=== PATIENT | female | born 1990 | race Caucasian/White ===

== ENCOUNTER 2025-01-08 17:33 | Emergency (ER) | payer OTHER, SELFPAY ==
--- OUTSIDE RECORDS SUMMARY | 2025-01-08 17:39 | XMS_ITS | Clinical Summary ---
Author Organization [facility] Address [address] [place] [address] Care Team Providers Care Paperback Machine Operator Name Role Phone Unavailable Primary Care Provider Unavailabl e Source Comments [facility],non-owned Affiliates and Associated Physician Practices is amultiple site organization consisting of ambulatory clinics and hospital sitesin [place], [place], [place] and [place]. This disclosure is being madepursuant to the Care Everywhere program and may not contain all information available regarding this patient. Last updated 18.[facility] [employer] Allergies No known active allergies Medications * Be aware that medications may not be up to date on this document. Alwaysverify current medications with the patient. labetalol (Normodyne; Trandate) 200 MG tablet Take 2 (two) tablets by mouth every 12 hours Active Vit-DSS-Fe Fum-FA ( vitamin with iron) tablet Take 1 (one) tablet by mouth once daily Active Active Problems Problem Noted Date Diagnosed Date Chronic hypertension affecting 023 Resolved Problems Problem Noted Date Diagnosed Date Resolved Date AMA (advanced maternal age) multigravida 35+, second trimester 10/29/2022 10/29/2022 Family History Relation Name Status Comments Brother Alive Father Alive Mother Alive Sister Alive Social History Tobacco Use Types Packs/Day Years Used Date Smoking Tobacco: Never Smokeless Tobacco: Never Tobacco Cessation:Counseling Given: Not Answered Alcohol Use Standard Drinks/Week Comments Not Currently 0 (1 standard drink = 0.6 oz pur e alcohol) [place] Depression Scale Answer Date Recorded [place] Depression Scale Total 0 10/29/2022 The thought of harming myself has occurred to me . Never 10/29/2022 Comments No Sex and Gender Information Value Date Recorded Sex Assigned at Not on file Legal Sex Female 5:34 AM DIRECTOR DIETETICS DEPARTMENT Gender Identity Not on file Sexual Orientation Not on file Last Filed Vital Signs Vital Sign Reading Time Taken Comments Blood Pressure 109/72 10/29/2022 9:29 AM DIRECTOR DIETETICS DEPARTMENT Pulse 90 10/29/2022 9:29 AM DIRECTOR DIETETICS DEPARTMENT Temperature - - Respiratory Rate - - Oxygen Saturation - - Inhaled Oxygen Concentration - - Weight 133.6 kg (294 lb 9.6 oz) 10/29/2022 9:29 AM DIRECTOR DIETETICS DEPARTMENT Height 157.5 cm (5' 2 ) 10/29/2022 9:29 AM DIRECTOR DIETETICS DEPARTMENT Body Mass Index 53.88 10/29/2022 9:29 AM DIRECTOR DIETETICS DEPARTMENT Plan of Treatment Health Maintenance Due Date Last Done Comments PAP SMEAR 1988 HIV SCREENING 01/03/2003 HEPATITIS C SCREENING 12/30/2005 DTAP/TDAP/TD VACCINES (1 - Tdap) 01/03/2007 HEPATITIS B VACCINE (1 of 3 - 19+ 3-dose series) 01/03/2007 COVID-19 VACCINE (1 - 2023-2 5 season) 2024 DEPRESSION SCREENING 09/14/2024 INFLUENZA VACCINE (Season Ended) 2025 ZOSTER VACCINE (1 of 2) 01/03/2038 HIB VACCINE Aged Out No longer eligi ble based on patient's age to complete this topic HPV VACCINE Aged Out No longer eligi ble based on patient's age to complete this topic MENINGOCOCCAL (Group B) VACC INE SHARED DECISION-MAKING Aged Out No longer eligibl e based on patient's age to complete this topic MENINGOCOCCAL GROUPS A/C/Y/W VACCINE Aged Out No longer eligible b ased on patient's age to complete this topic PNEUMOCOCCAL VACCINE Aged Out No long er eligible based on patient's age to complete this topic Insurance [facility]
--- OUTSIDE RECORDS SUMMARY | 2025-01-08 17:39 | XMS_ITS | Referral Summary ---
Author Organization [facility] Address [address] [place] [address] Care Team Providers Care Stuffed Casing Tier Name Role Phone No, Physician Primary Care Provider [phone] Allergies No known active allergies Medications PNV 39-iron stw-azpjd-hvk-d finch 30 mg iron-1.2 mg-55 mg-265 mg capsule Take by mouth daily Active benzocaine-ment hoL (DERMOPLAST) 20-0.5 % aerosolIndicati ons:Minor Skin Wound Pain Apply 1 Application (1 spray total) topically as needed for other (perianal area for pain) 1 g 3 Active ibuprofen (ADVIL,MOTRIN) 600 mg tabletIndicatio ns:Cramps Take 1 tablet (600 mg total) by mouth every 6 (six) hours as needed for pain 30 tablet 1 3 Active buPROPion XL (WELLBUTRIN XL) 150 mg 24 hr tablet Take 1 tablet (150 mg total) by mouth daily 30 tablet 3 Active busPIRone (BUSPAR) 5 mg tabletIndicatio ns:Generalized Anxiety Disorder Take 1 tablet (5 mg total) by mouth daily 30 tablet 3 Active labetaloL (NORMODYNE,GODFREY DATE) 200 mg tablet Take 2 tablets (400 mg total) by mouth 2 (two) times a day 120 tablet 3 Active Active Problems Problem Noted Date Diagnosed Date Chronic hypertension in 01/27/2023 Exudative pharyngitis 07/11/2019 Tonsillitis 07/11/2019 Immunizations Immunization Administration Dates Next Due MMR 01/29/2023(Deferred: No longer n eeded) Social History Tobacco Use Types Packs/Day Years Used Date Smoking Tobacco: Never Smokeless Tobacco: Never Alcohol Use Standard Drinks/Week Comments Not Currently 0 (1 standard drink = 0.6 oz pur e alcohol) Social Connection and Isolat ion Panel [NHANES] Answer Date Recorded In a typical week, how many times do you talk on the phone with family, friends, or neighbors? More than three times a week 01/27/2023 How often do you get togethe r with friends or relatives? More than three times a week 01/27/2023 How often do you attend chur ch or adventism services? Patient declined 01/27/2023 Do you belong to any clubs o r organizations such as gnosticist groups, unions, fraternal or athletic groups, or school groups? Patient declined 01/27/2023 How often do you attend meet ings of the clubs or organizations you belong to? Patient declined 01/27/2023 Are you , , di vorced, , never , or living with a partner? Never 01/27/2023 AUDIT-C Answer Date Recorded Q1: How often do you have a drink containing alc ohol? Never 01/27/2023 Average Number of Drinks Not on file 023 Frequency of Binge Drinking Not on file 01/12 Overall Financial Resource Strain (CARDIA) Answe r Date Recorded How hard is it for you to pa y for the very basics like food, housing, medical care, and heating? Not hard at all 01/27/2023 PHQ-2 Answer Date Recorded PHQ-2 Total Score (If total score is 3 or more points, staff should administer the PHQ-9) 3 01/27/2023 [facility] - Occupational Stress Questionnaire Answer Date Recorded Do you feel stress - tense, restless, nervous, or anxious, or unable to sleep at night because your mind is troubled all the time - these days? Not at all 01/27/2023 Exercise Vital Sign Answer Date Recorde d On average, how many days pe r week do you engage in moderate to strenuous exercise (like a brisk walk)? 0 days 01/27/2023 On average, how many minutes do you engage in exercise at this level? 0 min 01/27/2023 Hunger Vital Sign Answer Date Recorded Within the past 12 months, y ou worried that your food would run out before you got the money to buy more. Never true 01/28/20 23 Within the past 12 months, t he food you bought just didn't last and you didn't have money to get more. Never true 01/27/2023 PRAPARE - Transportation Answer Date Re corded In the past 12 months, has l ack of transportation kept you from medical appointments or from getting medications? No 01/12 In the past 12 months, has l ack of transportation kept you from meetings, work, or from getting things needed for daily living? No 01/27/2023 Housing Stability Vital Sign Answer Sabino e Recorded In the last 12 months, was t here a time when you were not able to pay the mortgage or rent on time? No 01/27/2023 In the last 12 months, how many places have you lived? 0 01/27/2023 In the last 12 months, was t here a time when you did not have a steady place to sleep or slept in a residential (including now)? No 01/27/2023 Personal Safety Answer Date Recorded Getting School Help Needed Not on file 01/28 Comments No Sex and Gender Information Value Date Recorded Sex Assigned at Not on file Legal Sex Female 5:44 PM EDGE MOLDER Gender Identity Not on file Sexual Orientation Not on file Last Filed Vital Signs Vital Sign Reading Time Taken Comments Blood Pressure 130/78 01/28/2023 10:10 PM CDT Pulse 83 01/28/2023 10:10 PM CDT Temperature 36.2 C (97.1 F) 01/28/2023 10:10 PM CDT Respiratory Rate 16 01/28/2023 10:10 PM CDT Oxygen Saturation 98% 05/16/2020 2:16 PM CDT Inhaled Oxygen Concentration - - Weight 133.8 kg (295 lb) 01/27/2023 7:02 AM CDT Height 157.5 cm (5' 2 ) 01/27/2023 7:02 AM CDT Body Mass Index 53.96 01/27/2023 7:02 AM CDT Plan of Treatment Not on file Insurance [facility] Advance Directives For more information, please contact: [phone] * Full Code (Latest Code Status on File) Date Activated Date Inactivated Comments 01/27/2023 4:49 PM 01/29/2023 7:51 PM * Full Code Date Activated Date Inactivated Comments 01/27/2023 6:36 AM 01/27/2023 4:49 PM Full CPR in case of cardiopulmonary arrest * Full Code Date Activated Date Inactivated Comments 12/13/2019 8:00 PM 12/15/2019 7:23 PM * Full Code Date Activated Date Inactivated Comments 12/13/2019 6:25 AM 12/13/2019 8:00 PM Full CPR in case of cardiopulmonary arrest Care Teams Stuffed Casing Tier Relationship Specialty Start Date End Date No, Physician PCP - General 05/20/19
--- OUTSIDE RECORDS SUMMARY | 2025-01-08 17:39 | XMS_ITS | Clinical Summary ---
Author Organization [facility] Address [address] [place] [address] Care Team Providers Care Store Mgr Name Role Phone No, Physician Primary Care Provider [phone] Allergies No known active allergies Medications PNV 39-iron fih-govvm-cps-d finch 30 mg iron-1.2 mg-55 mg-265 mg [...] Due MMR 01/29/2023(Deferred: No longer n eeded) Medical History Medical History Date Comments depression Family History Medical History Relation Name Comments Heart disease Mother Relation Name Status Comments Mother Social History Tobacco Use Types Packs/Day Years [...] often do you attend chur ch or jainism services? Patient declined 01/27/2023 Do you belong to any clubs o r organizations such as jehovah's witness groups, unions, fraternal or athletic groups, or [...] staff should administer the PHQ-9) 3 01/27/2023 [facility] - Occupational Stress Questionnaire Answer Date [...] place to sleep or slept in a long term (including now)? No 01/27/2023 Personal Safety Answer Date Recorded Getting School Help Needed Not on file 01/28 Comments No Sex and Gender Information Value Date Recorded Sex Assigned at Not on file Legal Sex Female 5:44 PM SITE DIRECTOR Gender Identity Not on file Sexual Orientation Not on file Obstetrics History Para Term AB IAB SAB Ectopic Multiple Livin g Live Births 5 5 5 0 2 2 Date Outcome GA Total Labor Labor/2nd/3rd Weight Sex Type Anes PTL Clara A1 A5 Name Clin Term Vag-Sp ont Term Vag-Sp ont Term Vag-Sp ont 2019 Term 39w 1d 3h 23m 3h 12m/0h 05m/0h 06m 3.37 kg (7 lb 6.9 oz) F Vag-Sp ont None N Livin g 9 9 LEWEY ,GIRL KELLY Pawel Carroll MD Delivery Location:[facility]) 2022 Term 38w 6d 0h 06m 0h 06m 2.799 kg (6 lb 2.7 oz) F Vagina l None N Livin g 8 9 RACHEL ,GIRL KELLY CONTRERAS Pawel Conrad MD Complications:None Delivery Location:[facility] ([facility]) Last Filed Vital Signs Vital Sign Reading [...] 01/27/2023 7:02 AM CDT Plan of Treatment Health Maintenance Due Date Last Done Comments Cervical Cancer Screening 1988 Hepatitis C Screening 1988 DTaP/Tdap/Td Vaccine (5 - Tdap) 04/24/1999 04/23/1999, 07/24/1992, 07/11/1991, Additional history exists Varicella Vaccines (1 of 2 - 13+ 2-dose series) 01/03/2001 Regular Well Visit/Exam 18-64 01/03/2006 Depression Screening 01/28/2024 01/27/2023, 01/28/20 23 Influenza Vaccine (#1) 2024 Hepatitis B Screening Completed 01/31/1998 , 09/13/1997, 08/09/1997 HPV Vaccines Aged Out No longer eligi ble based on patient's age to complete this topic Pneumococcal vaccine <65 Aged Out No longer eligible based on patient's age to complete this topic Insurance [facility] Advance Directives For more information, please contact: [phone] * Full Code (Latest Code Status on [...] in case of cardiopulmonary arrest Care Teams Store Mgr Relationship Specialty Start Date End Date No, Physician PCP - General 05/20/19
--- OUTSIDE RECORDS SUMMARY | 2025-01-08 17:40 | XMS_ITS | Clinical Summary ---
Author Organization [facility] Address [address] [place] [address] Phone Care Team Providers Care Asic Verification Engineer Name Role Phone Provider, None Primary Care Provider Unavailabl e Social History Tobacco Use Types Packs/Day Years Used Date Smoking Tobacco: Never Assessed Comments Unknown Sex and Gender Information Value Date Recorded Sex Assigned at Not on file Legal Sex Female 10:22 PM CDT Gender Identity Not on file Sexual Orientation Not on file Plan of Treatment Health Maintenance Due Date Last Done Comments Hepatitis C Virus (HCV) Screening 1988 Pap Smear 01/03/2009 Cervical Cancer Screening (CCS) 01/03/2018 HPV/Cotest 01/03/2018 Influenza Immunization (#1) 2024 SARS-COV-2 Immunization ( season) 2024 Respiratory Syncytial Virus (RSV) Immunization (Adult) (1 - 1-dose 75+ series) 01/03/2063 Hepatitis B Immunization Completed 998, 09/13/1997, 08/09/1997 DTaP/Tdap/Td Immunization Discontinued 2019, 04/23/1999, 07/24/1992, Additional history exists TdaP Immunization Completed 11/14/2019 Meningococcal Immunization (ACWY) Aged Out No longer eligible based on patient's age to complete this topic Pneumococcal Immunization Combined Aged Out No longer eligible based on patient's age to complete this topic Rotavirus Immunization Aged Out No lo nger eligible based on patient's age to complete this topic Insurance MEDICAID [place] Care Teams Asic Verification Engineer Relationship Specialty Start Date End Date Provider, None [place] PCP - General 10/11/19
[2025-01-08 17:41] VITALS: BP 213/121; PULSE 116; RESP 16; TEMP 36.6; O2SAT 99
--- NOTE | 2025-01-08 18:19 | ED.GENADULT ---
HPI - General Adult General Chief complaint: Upper Respiratory Infection Stated complaint: Ear Pain/Sore Throat Source: patient Mode of arrival: ambulatory Limitations: no limitations History of Present Illness HPI narrative: Pt presents for evaluation of sore throat and bilateral ear pain. Symptom onset yesterday. She denies any fever, chills, nausea, vomiting, diarrhea, cough or SOB. No recent sick contacts to her knowledge. She does not smoke. She is not taking any medication to assist with her symptoms. She arrives with markedly elevated BP. She denies any SOB, as previously mentioned, or chest pain. She does not smoke. She indicates she has a history of hypertension during . She has not been on medication in quite some time. Related Data Home Medications ?Medication ?Instructions ?Recorded ?Confirmed ?Last Taken ?Type bupropion HCl 150 mg 24 hr tablet, mg PO 01/08/25 Unknown History extended release norethindrone 1 mg-ethinyl tablet 01/08/25 Unknown History estradiol 20 mcg (24)-iron 75 mg (4) tablet (Aurovela 24 Fe) trazodone 100 mg tablet mg 01/08/25 Unknown History Allergies Allergy/AdvReac Type Severity Reaction Status Date / Time No Known Allergies Allergy Verified 01/08/25 17:45 Review of Systems Review of Systems: CONSTITUTIONAL: Denies fever, chills, or sweats. EYES: Denies visual changes, redness, or discharge. ENT: Reports sore throat and bilateral ear pain. CARDIOVASCULAR: Denies chest pain, palpitations, or edema. RESPIRATORY: Denies cough or dyspnea. GASTROINTESTINAL: Denies abdominal pain, nausea, vomiting, or diarrhea. GENITOURINARY: Denies dysuria or hematuria. SKIN: Denies rash or itching. MUSCULOSKELETAL: Denies back pain, joint pain, or myalgia. NEUROLOGIC: Denies headache, numbness, dizziness, or weakness. PSYCHIATRIC: Denies anxiety or depression. [facility] Past Medical History Medical History (Updated 01/08/25 @ 18:36 by Mateusz Barreto, YANELY, MARAL) Hypertension during Surgical History Surgical History No pertinent past surgical history Family History Family History Mother Family history non-contributory Social History Social History Smoking status: Never smoker Alcohol intake: never Substance use: never Living arrangements: with family Gender identity (if verbalized by the patient): Female Spiritual care concerns: No Exam Narrative: GENERAL: Well-appearing, well-nourished, and in no acute distress. HEAD: Normocephalic, atraumatic. EYES: PERRLA and EOMI. ENT: Nares clear, no rhinorrhea or epistaxis. Mucous membranes moist. Bilateral tonsillar enlargement with erythema but no exudate. Uvula is midline. Bilateral TMs pearly mandujano nonbulging NECK: Supple. No adenopathy or masses. No carotid bruits or JVD CHEST: Clear to auscultation. No respiratory distress. No wheezes rales or rhonchi HEART: Regular rate and rhythm. No murmur heard. Normal peripheral pulses. ABDOMEN: Soft, nontender, nondistended, normal active bowel sounds. EXTREMITIES: Normal range of motion. No edema. SKIN: Warm, dry, no rash. NEURO: No focal deficits. Alert and oriented x3. PSYCH: Normal mood and affect. Course Course Emergency Course: This is a 35-year-old female who presented for evaluation of sore throat and bilateral ear pain. Strep positive. Will treat with amoxicillin. Her blood pressure is markedly elevated. I recommended she go to the hospital for further evaluation. She declined. She has a single mother of 5 children. She states that she will contact whoever prescribed her blood pressure medication in the past tomorrow. I will provide her with a script for [facility]. I recommended she reconsider. She was provided with follow up information for primary care. She elected to leave [place] and understands potential implications of uncontrolled BP. Level of Care: Express Care Visit Vital Signs Vital signs: Vital Signs Temperature 36.6 C 01/08/25 17:41 Pulse Rate 116 H 01/08/25 17:41 Respiratory Rate 16 01/08/25 17:41 Blood Pressure 213/121 H 01/08/25 17:41 Pulse Oximetry 99 01/08/25 17:41 Oxygen Delivery Room Air 01/08/25 17:41 Temperature 36.6 C 01/08/25 17:41 Pulse Rate 116 H 01/08/25 17:41 Respiratory Rate 16 01/08/25 17:41 Blood Pressure 213/121 H 01/08/25 17:41 Pulse Oximetry 99 01/08/25 17:41 Oxygen Delivery Room Air 01/08/25 17:41 Medical Decision Making Vital Signs Vital Signs: Vital Signs Temperature 36.6 C 01/08/25 17:41 Pulse Rate 116 H 01/08/25 17:41 Respiratory Rate 16 01/08/25 17:41 Blood Pressure 213/121 H 01/08/25 17:41 Pulse Oximetry 99 01/08/25 17:41 Oxygen Delivery Room Air 01/08/25 17:41 Temperature 36.6 C 01/08/25 17:41 Pulse Rate 116 H 01/08/25 17:41 Respiratory Rate 16 01/08/25 17:41 Blood Pressure 213/121 H 01/08/25 17:41 Pulse Oximetry 99 01/08/25 17:41 Oxygen Delivery Room Air 01/08/25 17:41 Lab Data Labs: Lab Results 01/08/25 Range/Units 18:28 POC Grp A Strep Screen Positive (Negative) Discharge Plan Discharge Clinical Impression: Accelerated hypertension, Strep throat Patient Disposition: Left Against Medical Advice Condition: Guarded Prognosis Instructions: Strep Throat (DC), Hypertension (ED) Patient Language: French Prescriptions: New amoxicillin 500 mg tablet 500 mg PO Q12H Qty: 20 0RF amlodipine 5 mg tablet 5 mg PO DAILY Qty: 30 0RF No Action trazodone 100 mg tablet bupropion HCl 150 mg tablet extended release 24 hr PO Aurovela 24 Fe 1 mg-20 mcg (24)/75 mg (4) tablet Follow-up/Referrals: Fabian Villegas MD [Physician] - Time of Disposition: 18:38
[2025-01-08 18:30] LABS: EDSTREPNEGPOS1 Positive (Negative)
== END 2025-01-08 18:43 | disposition left against medical advice (07) ==
PROVIDERS: Emergency Provider Nurse Practitioner
DX: I10 Essential (primary) hypertension (principal); J02.0 Streptococcal pharyngitis
CPT/HCPCS: 87880; 99203; G0463